=== PATIENT | female | born 1995 | race Caucasian/White ===

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

== ENCOUNTER 2017-01-02 13:01 | Emergency (ER) | payer SELFPAY ==
[2017-01-02] MEDS ORDERED: Prochlorperazine Edisylate Inj 10mg/2ml vial IVP ONE ×2 (13:18→14:45)
[2017-01-02] MEDS ORDERED: Sodium Chloride 0.9% 1,000 ML PRIMARY IV ONE (13:18)
[2017-01-02] MEDS ORDERED: NORMAL SALINE 10 ML SYRINGE FLUSH IVP PRN (13:18)
[2017-01-02] MEDS ORDERED: diphenhydrAMINE 50 MG/1 ML VIAL IVP ONE (13:19)
[2017-01-02] MEDS ORDERED: Famotidine Inj 20 MG in Normal Saline Flush 10 ML IVP ONE (13:19)
--- NOTE | 2017-01-02 13:48 | PDOC ---
Nausea/Vomiting/Diarrhea HPI - General Chief Complaint: Nausea / Vomiting / Diarrhea Stated Complaint: N/V/D Date Seen by Provider: 01/02/17 Time Seen by Provider: 13:15 Source: POSITIVE: Patient Exam Limitations: POSITIVE: No limitations Nurse's Notes Reviewed & Considered: Yes - History of Present Illness Initial Comments: The patient is a 21-year-old female who presents to the emergency department with complaints of increased vomiting. She has a history of recurrent epigastric abdominal pain associated with nausea and vomiting. She has been seen here in the emergency department multiple times with similar presentation. She states over the past 24 hours her symptoms have worsened. She has tried taking Zofran as well as Phenergan suppositories without relief. She denies any use of marijuana since her last visit here at the end of November. She does have an appointment to see Dr. Guillaume a surfacing machine operator in [place] however she does not know when the appointment is scheduled. She reports associated epigastric cramping and intermittent pain. She denies fever or any other associated complaints. - Patient Home Medications Home Medications: Home Medications Famotidine [Pepcid] 20 mg PO DAILY 12/07/16 Ondansetron Odt [Zofran ODT] 4 mg PO PRN PRN 12/07/16 Pantoprazole Sodium [Protonix] 20 mg PO DAILY 12/07/16 Promethazine Supp [Phenergan Supp] 25 mg RECTAL ONCE PRN 12/15/16 - Patient Allergies Allergies/Adverse Reactions: Allergies Allergy/AdvReac Type Severity Reaction Status Date / Time No Known Allergies Allergy Verified 12/15/16 17:34 Past Medical History - heen HEENT History: Denies History Cardiovascular History: Denies History Respiratory History: Denies History Gastrointestinal History: Other (please comment) Additional Gastrointestinal History: History of N/V with abdominal pain. SERJIO DEC 2015. CYCLIC VOMITING DUE TO MARIJUANA USE. WAS TREATED SATURDAY 12/09 FOR N, V. GIVEN PHENERGAN SUPPOSITORIES Genitourinary History: Denies History Endocrine History: Denies History Musculoskeletal History: Denies History Prosthesis or Implant: No Neurological History: Denies History Blood Disorders: Denies History Psychiatric History: Denies History History of Sexually Transmitted Diseases: No Cancer History: Denies History History of MDRO: No History of Other Communicable Diseases: No Alcohol Use: None Substance Use Type: Marijuana Previous Surgical History: Yes Type / Date of Surgery: 4 YRS AGO - TONSILLECTOMY, WISDOM TEETH, SERJIO 2016 Anesthesia Reactions: No Malignant Hyperthermia: No Significant Family History: COPD Past Medical History Reviewed: Reviewed - No Changes ROS - Limitations ROS Limitations: No Limitations Constitution: REPORTS: Chills. DENIES: Fever Cardiovascular: REPORTS: Denies Cardiac Symptoms Respiratory: REPORTS: Denies Resp Symptoms Neurological: REPORTS: Denies Neuro Symptoms Gastrointestinal: REPORTS: Abdominal Pain (Intermittent epigastric pain and cramping), Nausea, Vomitting Endocrine: REPORTS: Denies Symptoms Musculoskeletal: REPORTS: Denies MS Symptoms Genitourinary: REPORTS: Denies Symptoms ENT: REPORTS: Denies Symptoms Skin: DENIES: Rash Nausea/Vomiting/Diarrhea Exam - General Appearance General Appearance: POSITIVE: Alert, Cooperative, No Acute Distress - HEENT HEENT: POSITIVE: Head Inspection Nml, Eyes Inspection Nml, Ears Inspection Nml, Nose Inspection Nml, Pharynx Inspect. Nml, PERRL, EOMI - Neck Neck: POSITIVE: Supple. NEGATIVE: Lymphadenopathy - Respiratory Respiratory: POSITIVE: No Respiratory Distress, Breath Sounds Normal - Cardiovascular Cardiovascular: POSITIVE: Regular Rate and Rhythm, Heart Sounds Normal Peripheral Pulses: Dorsalis-pedis (R): 2+, Dorsalis-pedis (L): 2+ - Abdomen Abdomen: Soft: (All Quadrants), Normal Bowel Sounds: (All Quadrants), No Distention: (All Quadrants) - Skin Skin: POSITIVE: Intact, No Rash N/V/D Progress - Results Reviewed by me Lab Results Reviewed: Yes Lab Results:: Laboratory Results 01/02/17 Range/Units 13:52 WBC 11.67 H (4.8-10.8) 10^3/uL RBC 4.56 (4.20-5.40) 10^6/uL Hgb 14.2 (12.0-16.0) g/dL Hct 41.7 (37.0-47.0) % MCV 91.4 (81-99) FL MCH 31.1 H (27-31) PG MCHC 34.1 (33-37) g/dL RDW Std Deviation 42.0 (39-50) fL RDW Coeff of Lorna 12.8 (11.5-14.5) % Plt Count 259 (140-350) 10*3/uL MPV 10.7 (7.4-12.2) FL Immature Gran % (Auto) 0.2 (0-5) % Neut % (Auto) 79.7 (50-80) % Lymph % (Auto) 14.1 (10-50) % [place] % (Auto) 5.1 (5-15) % Eos % (Auto) 0.3 (0-8) % Baso % (Auto) 0.6 (0-1) % Immature Gran # (Auto) 0.02 10*3/UL Neut # (Auto) 9.29 10*3/UL Lymph # (Auto) 1.65 10*3/uL [place] # (Auto) 0.60 (0.3-0.8) 10*3/UL Eos # (Auto) 0.04 10*3/UL Baso # (Auto) 0.07 10*3/UL WBC Morphology Comment Normal morphology (NORM) Plt Morphology Comment Normal morphology (NORM) RBC Morph Comment Normal morphology (NORM) Sodium 142 (135-145) meq/L Potassium 3.9 (3.8-5.2) meq/L Chloride 110 (98-112) meq/L Carbon Dioxide 22 L (23-33) meq/L Anion Gap 10 (5-20) BUN 11 (7-22) mg/dL Creatinine 0.7 (0.50-1.20) mg/dL Estimated GFR > 60 (>60 ml/min/1.73m(2)) BUN/Creatinine Ratio 15.71 (6-20) Glucose 117 H (78-110) mg/dL Calculated Osmolality 293.0 H (267-292) mOsm/kg Calcium 10.1 (8.7-10.7) mg/dL Magnesium 1.8 (1.6-2.4) mg/dL Total Bilirubin 0.8 (0.3-1.2) mg/dL AST 16 (8-39) IU/L ALT 24 (9-52) IU/L Alkaline Phosphatase 67 (50-259) IU/L C-Reactive Protein < 0.5 (0.0-0.9) mg/dL Total Protein 7.0 (6.1-8.0) g/dL Albumin 4.5 (3.7-5.6) g/dL Globulin 2.5 (2.50-4.10) g/dL Albumin/Globulin Ratio 1.80 (1.3-2.0) mg/g Amylase 40 (30-110) U/L Lipase 193 (23-300) IU/L Serum HCG, Qual Negative Serum Alcohol < 10 (0-10) mg/dL - Patient's Progress MDM / ED Course: An IV was established and the patient did receive a 1 L bolus of normal saline as well as Compazine 5 mg IV, Benadryl 25 mg IV and Pepcid 20 mg IV. She continued to have some abdominal cramping and requested to take a warm shower. She was allowed to take a warm shower in the OB room. Her pain improved however she had some continued nausea and received a second dose of Compazine IV. After this her nausea was improving and she felt well enough to go home. This has been a chronic recurrent issue for the patient. She does have an appointment to follow-up with a surfacing machine operator in [place] on January 25. In addition in the past it was thought that this may be secondary to marijuana usage. She claims to have not used marijuana since the end of November. She will continue Phenergan or Zofran as needed for nausea. She was advised to continue Protonix. She will return the emergency room if increased pain, vomiting or dehydration, fever, worsening or change in symptoms. - Consult Counseled: POSITIVE: Patient, RE: Lab Results, RE: DX, RE: Need for F/U Patient Care Time - Estimated PCT Patient Care Time (In Minutes): 25 Vital Signs - Recent Vital Signs Vital Signs: Vital Signs (Last 8 hours) Temp Pulse Resp BP Pulse Ox 01/02/17 13:17 97.5 F 85 22 139/70 97 - VS Reviewed Vital Signs Reviewed: Yes Discharge Clinical Impression: Nausea and vomiting, Epigastric pain Discharge Disposition: Discharged to Home Condition: Stable Patient Instructions Given at Discharge: Acute Nausea and Vomiting (ED), Acute Abdominal Pain (ED) Additional Instructions: Continue Protonix as previously prescribed. Continue Phenergan suppository as needed, continue Zofran as needed. Return to the emergency room if increased vomiting or dehydration, increased pain, fever, worsening or change in symptoms. Keep your appointment with gastroenterology (Dr. Guillaume) as scheduled. Follow Up With: NONE,NONE [Primary Care Provider] -
[2017-01-02 13:57] LABS: BASOPHILS # (AUTO) 0.07 10*3/UL; BASOPHILS % (AUTO) 0.6 % (0-1); EOSINOPHILS # (AUTO) 0.04 10*3/UL; EOSINOPHILS % (AUTO) 0.3 % (0-8); HEMATOCRIT 41.7 % (37.0-47.0); HEMOGLOBIN 14.2 g/dL (12.0-16.0); LYMPHOCYTES # (AUTO) 1.65 10*3/uL; MEAN CORPUSCULAR HEMOGLOBIN 31.1 PG (27-31); MEAN CORPUSCULAR HGB CONC 34.1 g/dL (33-37); MEAN CORPUSCULAR VOLUME 91.4 FL (81-99); MEAN PLATELET VOLUME 10.7 FL (7.4-12.2); MONOCYTES % (AUTO) 5.1 % (5-15); NEUTROPHILS # (AUTO) 9.29 10*3/UL; NEUTROPHILS % (AUTO) 79.7 % (50-80); RED BLOOD COUNT 4.56 10^6/uL (4.20-5.40)
[2017-01-02 13:59] LABS: PLATELET MORPHOLOGY COMMENT NORMAL MORPHOLOGY (NORM); RBC MORPHOLOGY COMMENT NORMAL MORPHOLOGY (NORM); WBC MORPHOLOGY COMMENT NORMAL MORPHOLOGY (NORM)
[2017-01-02 14:09] LABS: BLOOD UREA NITROGEN 11 mg/dL (7-22); BUN/CREATININE RATIO 15.71 (6-20); CALCIUM 10.1 mg/dL (8.7-10.7); EST GLOMERULAR FILTRATION > 60 (>60 ml/min/1.73m(2)); LIPASE 193 IU/L (23-300); MAGNESIUM 1.8 mg/dL (1.6-2.4); SERUM ALBUMIN 4.5 g/dL (3.7-5.6)
[2017-01-02 14:13] LABS: C-REACTIVE PROTEIN < 0.5 mg/dL (0.0-0.9)
[2017-01-02 15:02] VITALS: RESP 22; TEMP 97.5
== END 2017-01-02 15:11 | disposition home or self-care (01) ==
LOC: ER 13:01
DX: R10.13 Epigastric pain (principal); R11.2 Nausea with vomiting, unspecified
CPT/HCPCS: 80053; 80320; 82150; 83690; 83735; 84703; 85025; 86140; 96361; 96374; 96375; 96376; 99283 ×2; J0780; J1200; S0028; J7030

== ENCOUNTER 2017-01-04 08:14 | Emergency (ER) | payer SELFPAY ==
[2017-01-04] MEDS ORDERED: NORMAL SALINE 10 ML SYRINGE FLUSH IVP PRN (08:17)
[2017-01-04 08:29] VITALS: RESP 19; TEMP 96.9
[2017-01-04] MEDS: Sodium Chloride 0.9% 1,000 ML PRIMARY IV ONE (08:41)
[2017-01-04] MEDS: diphenhydrAMINE 50 MG/1 ML VIAL IVP ONE (08:43)
[2017-01-04] MEDS: Prochlorperazine Edisylate Inj 10mg/2ml vial IVP ONE (08:45)
[2017-01-04] MEDS: Famotidine Inj 20 MG in Normal Saline Flush 10 ML IVP ONE (08:48)
[2017-01-04 08:49] LABS: BASOPHILS # (AUTO) 0.09 10*3/UL; BASOPHILS % (AUTO) 0.9 % (0-1); EOSINOPHILS # (AUTO) 0.05 10*3/UL; EOSINOPHILS % (AUTO) 0.5 % (0-8); HEMATOCRIT 40.8 % (37.0-47.0); HEMOGLOBIN 14.3 g/dL (12.0-16.0); LYMPHOCYTES # (AUTO) 1.94 10*3/uL; MEAN CORPUSCULAR HEMOGLOBIN 31.9 PG (27-31); MEAN CORPUSCULAR VOLUME 91.1 FL (81-99); MEAN PLATELET VOLUME 10.6 FL (7.4-12.2); MONOCYTES # (AUTO) 1.02 10*3/UL (0.3-0.8); MONOCYTES % (AUTO) 10.6 % (5-15); NEUTROPHILS # (AUTO) 6.48 10*3/UL; NEUTROPHILS % (AUTO) 67.6 % (50-80); RED BLOOD COUNT 4.48 10^6/uL (4.20-5.40)
--- NOTE | 2017-01-04 08:52 | PDOC ---
Abdomen/Flank HPI - General Chief Complaint: Abdomen Pain Stated Complaint: NAUSEA/VOMITING/ABD PAIN Date Seen by Provider: 01/04/17 Time Seen by Provider: 08:15 Source: POSITIVE: Patient Exam Limitations: POSITIVE: No limitations Nurse's Notes Reviewed & Considered: Yes - History of Present Illness Initial Comments: The patient is a 21-year-old female who returns to the emergency room with continued epigastric abdominal pain, nausea and vomiting. She has been seen multiple times here in the emergency department over the past year with similar presentations. She was last seen here 2 days ago. She is thought to have cyclic vomiting syndrome possibly secondary to marijuana usage. She states that she has been unable to keep anything down since . She took her last Phenergan suppository last night. She denies any fevers or chills. She states she has not had a bowel movement in the past 24 hours. - Patient Home Medications Home Medications: Home Medications Famotidine [Pepcid] 20 mg PO DAILY 12/07/16 Pantoprazole Sodium [Protonix] 20 mg PO DAILY 12/07/16 Promethazine Supp [Phenergan Supp] 25 mg RECTAL ONCE PRN 12/15/16 Metoclopramide HCl [Reglan] 5 mg PO Q6H PRN #30 tablet 01/04/17 Promethazine Supp [Phenergan Supp] 25 mg RECTAL Q6H PRN #10 supp 01/04/17 - Patient Allergies Allergies/Adverse Reactions: Allergies Allergy/AdvReac Type Severity Reaction Status Date / Time No Known Allergies Allergy Verified 01/04/17 08:16 Past Medical History - heen HEENT History: Denies History Cardiovascular History: Denies History Respiratory History: Denies History Gastrointestinal History: Other (please comment) Additional Gastrointestinal History: History of N/V with abdominal pain. SERJIO DEC 2015. CYCLIC VOMITING DUE TO MARIJUANA USE. WAS TREATED SATURDAY 12/09 FOR N, V. GIVEN PHENERGAN SUPPOSITORIES Genitourinary History: Denies History Endocrine History: Denies History Musculoskeletal History: Denies History Prosthesis or Implant: No Neurological History: Denies History Blood Disorders: Denies History Psychiatric History: Denies History History of Sexually Transmitted Diseases: No LMP: 12/28 Cancer History: Denies History In Past Year Been Physically Harmed or Verbally Threatened: No (PER PATIENT) History of MDRO: No History of Other Communicable Diseases: No Tobacco Use: Current Some Day Smoker Alcohol Use: None Substance Use Type: Marijuana Previous Surgical History: Yes Type / Date of Surgery: TONSILLECTOMY 2013, WISDOM TEETH, SERJIO 2016 Anesthesia Reactions: No Malignant Hyperthermia: No Family History of Malignant Hyperthermia: No Significant Family History: COPD Past Medical History Reviewed: Reviewed - No Changes ROS - Limitations ROS Limitations: No Limitations Constitution: DENIES: Chills, Fever Cardiovascular: REPORTS: Denies Cardiac Symptoms Respiratory: REPORTS: Denies Resp Symptoms Neurological: REPORTS: Denies Neuro Symptoms Gastrointestinal: REPORTS: Abdominal Pain, Nausea, Vomitting. DENIES: Diarrhea , Black Stools, Bloody Stools Musculoskeletal: REPORTS: Denies MS Symptoms Genitourinary: REPORTS: Denies Symptoms Eyes: REPORTS: Denies Symptoms ENT: REPORTS: Denies Symptoms Skin: DENIES: Rash Abdominal/Flank Pain PE - General Appearance General Appearance: POSITIVE: Alert, Cooperative, No Acute Distress - HEENT HEENT: POSITIVE: Head Inspection Nml, Eyes Inspection Nml, Ears Inspection Nml, Nose Inspection Nml, Pharynx Inspect. Nml - Neck Neck: POSITIVE: Normal Inspection. NEGATIVE: Lymphadenopathy - Respiratory Respiratory: POSITIVE: No Respiratory Distress, Breath Sounds Normal - Cardiovascular Cardiovascular: POSITIVE: Regular Rate and Rhythm, Heart Sounds Normal - Abdomen Abdomen: Soft: (All Quadrants), Normal Bowel Sounds: (All Quadrants), No [place] Mass: (All Quadrants) Additional Abdominal Details: She does have tenderness in the epigastric region primarily, some mild tenderness throughout the abdomen. - Skin Skin: POSITIVE: Intact, No Rash - Extremities Extremity: Normal ROM: (All Extremities), Normal Inspection: (All Extremities) - Neurological Neurological: POSITIVE: Oriented X3, Motor Normal, Sensation Normal Abdomen Progress - Results Reviewed by me Lab Results Reviewed: Yes Lab Results:: Laboratory Results 01/04/17 01/04/17 Range/Units 08:40 09:55 WBC 9.60 (4.8-10.8) 10^3/uL RBC 4.48 (4.20-5.40) 10^6/uL Hgb 14.3 (12.0-16.0) g/dL Hct 40.8 (37.0-47.0) % MCV 91.1 (81-99) FL MCH 31.9 H (27-31) PG MCHC 35.0 (33-37) g/dL RDW Std Deviation 41.9 (39-50) fL RDW Coeff of Lorna 12.8 (11.5-14.5) % Plt Count 216 (140-350) 10*3/uL MPV 10.6 (7.4-12.2) FL Immature Gran % (Auto) 0.2 (0-5) % Neut % (Auto) 67.6 (50-80) % Lymph % (Auto) 20.2 (10-50) % Ballard % (Auto) 10.6 (5-15) % Eos % (Auto) 0.5 (0-8) % Baso % (Auto) 0.9 (0-1) % Immature Gran # (Auto) 0.02 10*3/UL Neut # (Auto) 6.48 10*3/UL Lymph # (Auto) 1.94 10*3/uL Ballard # (Auto) 1.02 H (0.3-0.8) 10*3/UL Eos # (Auto) 0.05 10*3/UL Baso # (Auto) 0.09 10*3/UL WBC Morphology Comment Normal morphology (NORM) Plt Morphology Comment Normal morphology (NORM) RBC Morph Comment Normal morphology (NORM) Sodium 139 (135-145) meq/L Potassium 3.0 L (3.8-5.2) meq/L Chloride 104 (98-112) meq/L Carbon Dioxide 22 L (23-33) meq/L Anion Gap 13 (5-20) BUN 12 (7-22) mg/dL Creatinine 0.7 (0.50-1.20) mg/dL Estimated GFR > 60 (>60 ml/min/1.73m(2)) BUN/Creatinine Ratio 17.14 (6-20) Glucose 122 H (78-110) mg/dL Calculated Osmolality 288.0 (267-292) mOsm/kg Calcium 9.7 (8.7-10.7) mg/dL Magnesium 1.7 (1.6-2.4) mg/dL Total Bilirubin 1.0 (0.3-1.2) mg/dL AST 19 (8-39) IU/L ALT 22 (9-52) IU/L Alkaline Phosphatase 53 (50-259) IU/L C-Reactive Protein < 0.5 (0.0-0.9) mg/dL Total Protein 7.1 (6.1-8.0) g/dL Albumin 4.4 (3.7-5.6) g/dL Globulin 2.6 (2.50-4.10) g/dL Albumin/Globulin Ratio 1.60 (1.3-2.0) mg/g Amylase 43 (30-110) U/L Lipase 40 (23-300) IU/L TSH 0.940 (0.2700-4.2000) uIU/mL Serum HCG, Qual Negative Ur Collection Type Clean catch urine Urine Color Yellow Urine Clarity Clear (CLEAR) Urine pH 6.0 (5.0-8.5) Ur Specific [place] >=1.030 (1.005-1.030) U Specif Grav (Refrac) 1.030 Urine Protein 100 (NEG) mg/dl Urine Glucose (UA) Negative (NEG) mg/dL Urine Ketones Trace (NEG) Urine Occult Blood Negative (NEG) Urine Nitrate Negative (NEG) Urine Bilirubin Small (NEG) Urine Urobilinogen 1.0 (0.2) EU/dL Ur Leukocyte Esterase Negative (NEG) Urine RBC 3-5 (NONE) /hpf Urine WBC 3-5 (NONE) Ur Squamous Epith Cells Many (NONE) Ur Renal Epithelial Cell None (NONE) Urine Crystals None Urine Bacteria Few (NONE) Urine Casts None (NONE) Urine Mucus Moderate (NONE) Urine Trichomonas None (NONE) Urine Yeast None (NONE) Ur Culture Indicated? Culture not set Urine Opiates Screen Negative (NEG) Ur Buprenorphine Negative (NEG) Ur Oxycodone Screen Negative (NEG) Urine Methadone Screen Negative (NEG) Ur Propoxyphene Screen Negative (NEG) Barbiturate Screen Negative (NEG) U Tricyclic Antidepress Negative (NEG) Phencyclidine Screen Negative (NEG) Amphetamines Screen Negative (NEG) U Methamphetamines Scrn Negative (NEG) Benzodiazepines Screen Positive H (NEG) Cocaine Screen Negative (NEG) U Marijuana (THC) Screen Positive H (NEG) - Patient's Progress MDM / ED Course: An IV was established and she did receive a 1 L bolus of normal saline. In addition she received Pepcid 20 mg IV, Compazine 5 mg IV and Benadryl 25 mg IV. She had continued nausea and received Haldol 2.5 mg IV. Her lab work is all essentially unremarkable except for slightly low potassium. Her tox screen is positive for marijuana as well as benzodiazepines. Findings were discussed with the patient. Despite stating that she has not used marijuana recently she is still positive. Her symptoms are consistent with cyclic vomiting syndrome associated with cannabis use. She was advised to discontinue use of marijuana again. In addition it is possible that this could represen a gastroparesis. She does have an appointment with the safe and vault mechanic in [place] early January. She was advised to keep this appointment. She will be started on Reglan 5 mg every before meals and at bedtime and was given Phenergan suppositories as needed for nausea or vomiting. She will continue her proton pump inhibitor as well. She is advised return to the maternal she develops increased pain, dehydration, worsening or change in symptoms. - Consult Counseled: POSITIVE: Patient, RE: Lab Results, RE: DX, RE: Need for F/U Patient Care Time - Estimated PCT Patient Care Time (In Minutes): 30 Vital Signs - Recent Vital Signs Vital Signs: Vital Signs (Last 8 hours) Temp Pulse Resp BP Pulse Ox 01/04/17 08:14 96.9 F 68 19 128/95 99 - VS Reviewed Vital Signs Reviewed: Yes Discharge Clinical Impression: Nausea and vomiting, Epigastric pain Discharge Disposition: Discharged to Home Condition: Stable Prescriptions / Orders: Promethazine Supp [Phenergan Supp] 25 mg RECTAL Q6H PRN #10 supp PRN Reason: Nausea And Vomiting Metoclopramide HCl [Reglan] 5 mg PO Q6H PRN #30 tablet PRN Reason: Nausea / Vomiting Patient Instructions Given at Discharge: Acute Nausea and Vomiting (ED), Acute Abdominal Pain (ED) Additional Instructions: Blood work done here in the emergency room today was all unremarkable except for potassium was a little low. This is likely from not being able to keep anything down the past several days. You did test positive still for marijuana. As previously discussed marijuana can contribute to your current symptoms and I would recommend that you discontinue using this. In addition these symptoms may be related to your stomach not emptying out properly. This is something that Dr. Guillaume can test for in [place]. You have been prescribed Reglan 5 mg 30 minutes before meals and at bedtime which is a nausea medication and also helps with gastric emptying. In addition continue your Protonix as previously prescribed. You've also been given a new prescription for Phenergan suppository as needed for refractory nausea and vomiting. Return to the emergency room if dehydration, fever, increased pain, worsening or change in symptoms. Keep your appointment with the safe and vault mechanic on January 25. Follow Up With: DORITA DAVILA [Primary Care Provider] -
[2017-01-04 09:00] LABS: PLATELET MORPHOLOGY COMMENT NORMAL MORPHOLOGY (NORM); RBC MORPHOLOGY COMMENT NORMAL MORPHOLOGY (NORM); WBC MORPHOLOGY COMMENT NORMAL MORPHOLOGY (NORM)
[2017-01-04 09:08] LABS: BLOOD UREA NITROGEN 12 mg/dL (7-22); BUN/CREATININE RATIO 17.14 (6-20); CALCIUM 9.7 mg/dL (8.7-10.7); EST GLOMERULAR FILTRATION > 60 (>60 ml/min/1.73m(2)); LIPASE 40 IU/L (23-300); MAGNESIUM 1.7 mg/dL (1.6-2.4); SERUM ALBUMIN 4.4 g/dL (3.7-5.6)
[2017-01-04 09:10] LABS: C-REACTIVE PROTEIN < 0.5 mg/dL (0.0-0.9)
[2017-01-04] MEDS: HALOPERIDOL LACTATE 5 MG/1 ML AMPULE IVP ONE (09:26)
[2017-01-04 10:04] LABS: BILIRUBIN,URINE SMALL (NEG); CLARITY,URINE CLEAR (CLEAR); COLOR,URINE YELLOW; GLUCOSE, URINE (UA) NEGATIVE (NEG); NITRATE,URINE NEGATIVE (NEG); OCCULT BLOOD,URINE NEGATIVE (NEG); PROTEIN,URINE 100 mg/dl (NEG)
[2017-01-04 10:10] LABS: BACTERIA,URINE FEW; SQUAMOUS EPITHELIAL CELL,UR MANY; URINE SAMPLE TYPE CLEAN CATCH URINE
[2017-01-04 10:12] LABS: AMPHETAMINE SCREEN NEGATIVE (NEG); CANNABINOID SCREEN,URINE POSITIVE (NEG); COCAINE SCREEN NEGATIVE (NEG); METHADONE URINE SCREEN NEGATIVE (NEG); METHAMPHETAMINES SCREEN,URINE NEGATIVE (NEG); OPIATE SCREEN,URINE NEGATIVE (NEG); URINE SAMPLE TYPE CLEAN CATCH URINE
== END 2017-01-04 10:40 | disposition home or self-care (01) ==
LOC: ER 08:14
DX: R10.13 Epigastric pain (principal); R11.2 Nausea with vomiting, unspecified
CPT/HCPCS: 80053; 80305; 81001; 81003; 82150; 83690; 83735; 84443; 84703; 85025; 86140; 96361; 96374; 96375; 99283 ×2; J0780; J1200; J1630; S0028; J7030

== ENCOUNTER 2019-05-11 00:01 | Inpatient (IN) ==
[2019-05-11] MEDS ORDERED: OXYTOCIN 10 UNIT/1 ML IM PRN (00:06)
[2019-05-11] MEDS ORDERED: ONDANSETRON 4 MG/2 ML VIAL IVP PRN ×2 (00:06→13:08)
[2019-05-11] MEDS ORDERED: Lidocaine 1% 10 MG/ML - 20 ML VIAL SUBCUT PRN (00:06)
[2019-05-11] MEDS ORDERED: LIDOCAINE W/ SODIUM BICARB 0.5 ML SYR SUBD PRN (00:06)
[2019-05-11] MEDS ORDERED: TERBUTALINE SULFATE 1 MG/1 ML SDV SUBCUT PRN (00:06)
[2019-05-11] MEDS ORDERED: LIDOCAINE HCL 2 % 10 ML JELLY URO-JECT TOPICAL PRN ×2 (00:06→13:08)
[2019-05-11] MEDS ORDERED: Naloxone Inj 0.01 MG in Sodium Chloride 0.9% vial 1 ML IVP PRN (00:06)
[2019-05-11] MEDS ORDERED: METHYLERGONOVINE MALEATE 0.2 MG/1 ML VIAL IM PRN (00:06)
[2019-05-11] MEDS ORDERED: Phenylephrine Inj 50 MCG in Sodium Chloride 0.9% vial 0.5 ML IVP PRN (00:06)
[2019-05-11] MEDS ORDERED: NALOXONE 0.4 MG/1 ML VIAL IVP PRN (00:06)
[2019-05-11] MEDS ORDERED: Carboprost Inj 250 MCG/ML AMP IM PRN (00:06)
[2019-05-11] MEDS ORDERED: Metoclopramide Inj 10 MG/2 ML VIAL IV PRN (00:06)
[2019-05-11] MEDS ORDERED: CALCIUM CARBONATE 500 MG (TUMS) CHEWABLE TABLET PO PRN ×2 (00:06→13:08)
[2019-05-11] MEDS ORDERED: MISOPROSTOL 200 MCG TABLET RECTAL PRN (00:06)
[2019-05-11] MEDS ORDERED: FAMOTIDINE 20 MG/2 ML VIAL IVP PRN ×2 (00:06)
[2019-05-11] MEDS ORDERED: diphenhydrAMINE 50 MG/1 ML VIAL IVP PRN ×2 (00:06→13:08)
[2019-05-11] MEDS ORDERED: Misoprostol Tab 100 MCG TAB VAGINAL PRN (00:06)
[2019-05-11] MEDS ORDERED: Nalbuphine Inj 20 MG/ML Ampule IVP PRN ×2 (00:06→13:08)
[2019-05-11] MEDS ORDERED: CITRIC ACID/SODIUM CITRATE 30 ML CUP PO PRN (00:06)
[2019-05-11] MEDS ORDERED: BUTORPHANOL TARTRATE 2 MG/1 ML VIAL IVP PRN (00:06)
[2019-05-11] MEDS ORDERED: CefOXitin Inj 2 GM in Sodium Chloride 0.9% 100 ML IV PRN (00:06)
[2019-05-11] MEDS ORDERED: Oxytocin 20 Units + LR 20 UNIT/1,000 ML BAG IV SCH ×3 (00:15→13:08)
[2019-05-11] MEDS: Lactated Ringers-OB Dept 1,000 ML PRIMARY IV SCH ×3 (00:52→09:38)
[2019-05-11 01:23] LABS: Hemoglobin [HGB] 10.6 g/dL (12.0-16.0); MEAN CORPUSCULAR HGB CONC 35.3 g/dL (33-37); MEAN PLATELET VOLUME 10.2 FL (7.4-12.2); RED BLOOD COUNT 3.37 10^6/uL (4.20-5.40)
[2019-05-11] MEDS: fentaNYL Inj 100 MCG/2 ML VIAL IVP PRN ×2 (05:38→07:53)
[2019-05-11] MEDS ORDERED: Fent/Bupiv 2mcg/0.0625% Epid 250 ML ONE (08:59)
[2019-05-11] MEDS ORDERED: fentaNYL 2 MCG/BUPIVACAINE 0.0625%/NS 0.9% 250 ML BAG EPIDURAL SCH (09:15)
[2019-05-11] MEDS ORDERED: Sodium Chloride 0.9% vial 10 ML ONE (09:31)
[2019-05-11] MEDS ORDERED: LIDOCAINE MPF 2% - 5 ML (20 MG/1 ML) ONE (09:31)
[2019-05-11] MEDS ORDERED: RHO(D) IMMUNE GLOBULIN 1500 UNIT(300 mcg)SYRIN IM PRN (13:08)
[2019-05-11] MEDS ORDERED: DIPH,PERTUSS,TET(ADACEL) VAC/PF 0.5 ML (Tdap) IM ONE (13:08)
[2019-05-11] MEDS ORDERED: IBUPROFEN 800 MG TABLET PO PRN (13:08)
[2019-05-11] MEDS ORDERED: Ondansetron ODT Tab 4 MG TAB PO PRN (13:08)
[2019-05-11] MEDS ORDERED: Lidocaine 1% 10 MG/ML - 20 ML VIAL INTRADERM PRN (13:08)
[2019-05-11] MEDS ORDERED: ACETAMINOPHEN 325 MG TABLET PO PRN (13:08)
[2019-05-11] MEDS ORDERED: HYDROcodone-APAP 5 MG -325 MG TABLET PO PRN (13:08)
[2019-05-11] MEDS ORDERED: BENZOCAINE/MENTHOL SPRAY 56 GM BOTTLE TOPICAL PRN (13:08)
[2019-05-11] MEDS ORDERED: diphenhydrAMINE 25 MG CAPSULE PO PRN (13:08)
[2019-05-11] MEDS ORDERED: LANOLIN HPA 40 GM TUBE TOPICAL PRN (13:08)
[2019-05-11] MEDS ORDERED: GLYCERIN/WITCH HAZEL 1 BOX TOPICAL PRN (13:08)
[2019-05-12 05:48] LABS: Hematocrit [HCT] 29.4 % (37.0-47.0); MEAN CORPUSCULAR VOLUME 89.9 FL (81-99); MEAN PLATELET VOLUME 10.9 FL (7.4-12.2); RED BLOOD COUNT 3.27 10^6/uL (4.20-5.40)
[2019-05-12 07:37] VITALS: BP 135/83; RESP 16; TEMP 98.5; O2SAT 96
[2019-05-12] MEDS ORDERED: Prenatal Multivitamin Tab 1 TAB TAB PO SCH (09:00)
[2019-05-12] MEDS ORDERED: DOCUSATE 100 MG CAPSULE PO SCH (09:00)
== END 2019-05-12 17:34 | disposition home or self-care (01) | DRG 807 ==
LOC: OBIP 00:01
PROVIDERS: ADMIT Obstetrics & Gynecology; ATTEND Obstetrics & Gynecology